=== PATIENT | female | born 1985 | race Two or more races ===

== ENCOUNTER 2020-09-09 15:20 | Emergency (ER) | payer MEDICAID, OTHER ==
[~2020-09-09] VITALS: Ht 170.2 cm; Wt 77.1 kg
[2020-09-09 15:24] VITALS: BP 139/62
--- NOTE | 2020-09-09 15:44 | NUR ---
C/O LEFT HAND DISCOMFORT, PT WAS PICKING UP TRASH TODAY AND BELIEVE SHE WAS POKED BY A NEEDLE. STATES "IT DOESNT HURT, JUST FEELS WEIRD". NO DEFORMITY NOTED, SKIN IS INTACT. CMS +. NO PMH NKDA
--- NOTE | 2020-09-09 15:52 | NUR ---
PROVIDER AT BEDSIDE EVALUATING PT.
[2020-09-09] MEDS ORDERED: RALT400T PO (16:06)
[2020-09-09] MEDS ORDERED: ONDA4TAB PO (16:06)
[2020-09-09] MEDS ORDERED: TENO300T2 PO (16:06)
--- NOTE | 2020-09-09 16:10 | NUR ---
PROVIDER EVALUATING PT AT BEDSIDE VIA PHONE CANDY COUNTER CLERK. PER INTREPRETER PT DENIES ANY PAIN.
--- NOTE | 2020-09-09 16:14 | NUR ---
PROVIDER EVALUATING PT AT BEDSIDE.
[2020-09-09 16:20] VITALS: BP 139/62
--- NOTE | 2020-09-09 16:20 | NUR ---
Patient discharged with v/s stable. Written and verbal after care instructions given and explained. Patient alert, oriented and verbalized understanding of instructions. Ambulatory with steady gait. All questions addressed prior to discharge. ID band removed. Patient advised to follow up with PMD. Rx of FELY MANCIA VIREAD, given. Patient educated on indication of medication including possible reaction and side effects. Opportunity to ask questions provided and answered.
== END 2020-09-09 16:20 | disposition home or self-care (01) ==
LOC: MED 15:20
DX: M79.602 Pain in left arm (principal); Z79.899 Other long term (current) drug therapy; W46.1XXA Contact with contaminated hypodermic needle, initial encounter; Y93.89 Activity, other specified; Y92.89 Other specified places as the place of occurrence of the external cause; Y99.8 Other external cause status
CPT/HCPCS: 99283

== ENCOUNTER 2020-11-03 17:55 | Emergency (ER) | payer OTHER ==
[~2020-11-03] VITALS: Ht 170.2 cm; Wt 80.7 kg
[~2020-11-03 17:55] MED LIST: ONDA4TAB PO; RALT400T PO; TENO300T2 PO
[2020-11-03 18:05] VITALS: BP 151/83
[2020-11-03] MEDS ORDERED: CIPR500T4 PO (18:42)
[2020-11-03] MEDS: KETOROLAC 60 MG/2 ML VIAL IM ONE (18:44)
[2020-11-03] MEDS ORDERED: ACET-8386 PO (18:58)
== END 2020-11-03 18:54 | disposition home or self-care (01) ==
LOC: MED 17:55
DX: N39.0 Urinary tract infection, site not specified (principal); R51.9 Headache, unspecified
CPT/HCPCS: 81002; 81025; 96372; 99283; J1885

== ENCOUNTER 2021-06-03 17:47 | Emergency (ER) | payer OTHER ==
[~2021-06-03] VITALS: Ht 170.2 cm; Wt 85.3 kg
[~2021-06-03 17:47] MED LIST changes: +ACET-8386 PO; +CIPR500T4 PO
[2021-06-03 17:58] VITALS: BP 118/78
[2021-06-03] MEDS: KETOROLAC 30 MG/ML VIAL IM ONE (18:28)
[2021-06-03] MEDS ORDERED: IBUP-2213 PO (19:49)
[2021-06-03] MEDS ORDERED: LID5T TP (19:49)
[2021-06-03] MEDS ORDERED: CYCL-711 PO (19:49)
== END 2021-06-03 20:09 | disposition home or self-care (01) ==
LOC: MED 17:47
DX: M54.6 Pain in thoracic spine (principal)
CPT/HCPCS: 72080; 81002; 81025; 96372; 99283; J1885

== ENCOUNTER 2021-08-31 15:45 | Emergency (ER) | payer OTHER ==
[~2021-08-31] VITALS: Ht 167.6 cm; Wt 84.4 kg
[~2021-08-31 15:45] MED LIST changes: +CYCL-711 PO; +IBUP-2213 PO; +LID5T TP
[2021-08-31 15:46] VITALS: BP 161/76
--- NOTE | 2021-08-31 16:26 | NUR ---
XRAY AT BEDSIDE
--- NOTE | 2021-08-31 16:29 | NUR ---
URINE AND BLOOD WALKED TO LAB AND HANDED TO [facility]
[2021-08-31 16:38] LABS: BASOPHILS % (AUTO) 0.4 % (0.0-2.0); EOSINOPHILS % (AUTO) 0.7 % (0.0-4.0); HEMATOCRIT 34.8 % (36-48); HEMOGLOBIN 11.3 g/dL (12.0-16.0); LYMPHOCYTES # (AUTO) 1.4 K/uL (2.5-16.5); LYMPHOCYTES % (AUTO) 21.2 % (20.5-51.1); MEAN CORPUSCULAR HEMOGLOBIN 24 pg (27-31); MEAN CORPUSCULAR HGB CONC 33 g/dL (33-37); MONOCYTES # (AUTO) 0.5 K/uL (0.8-1.0); MONOCYTES % (AUTO) 7.5 % (1.7-9.3); NEUTROPHILS # (AUTO) 4.5 K/uL (1.8-7.7); NEUTROPHILS % (AUTO) 70.2 % (42.2-75.2); PLATELET COUNT (AUTO) 239 K/uL (140-450); RED BLOOD CELL COUNT(AUTO) 4.63 MIL/uL (4.20-5.40); RED CELL DISTRIBUTION WIDTH 15.9 % (11.6-13.7); WHITE BLOOD COUNT (AUTO) 6.4 K/uL (4.8-10.8)
[2021-08-31] MEDS ORDERED: ONDANSETRON 4 MG/2 ML VIAL IVP ONE (16:50)
[2021-08-31] MEDS ORDERED: FAMOTIDINE 20 MG/2 ML VIAL IVP ONE (16:50)
[2021-08-31] MEDS ORDERED: ALUMINUM HYD/MAG/SIMETHICONE 30 ML, DICYCLOMINE HCL LIQUID 20 MG, LIDOCAINE VISCOUS 2% ... PO ONE ×3 (16:50)
[2021-08-31] MEDS ORDERED: NACL 0.9% 1,000 ML IV ONE ×2 (16:50→18:30)
[2021-08-31 16:59] LABS: ALBUMIN 3.8 g/dL (3.4-5.0); ANION GAP 11.1 (8-16); CARBON DIOXIDE 27.1 mmol/L (21-32); CREATININE 0.8 mg/dL (0.6-1.3); POTASSIUM 3.2 mmol/L (3.5-5.1); TOTAL BILIRUBIN 0.5 mg/dL (0.0-1.0)
[2021-08-31] MEDS ORDERED: ALUMINUM HYD/MAG/SIMETHICONE 30 ML UDC ONE (17:06)
[2021-08-31] MEDS ORDERED: DICYCLOMINE HCL LIQUID 10 MG/5 ML UDC ONE (17:07)
[2021-08-31 17:08] LABS: APPEARANCE,URINE CLEAR (CLEAR); BILIRUBIN,URINE NEGATIVE (NEGATIVE); BLOOD, URINE 3+ (NEGATIVE); COLOR,URINE YELLOW (YELLOW); LEUKOCYTE ESTERASE ,URINE NEGATIVE (NEGATIVE); NITRITE, URINE NEGATIVE (NEGATIVE); UGLUCOSE NEGATIVE (NEGATIVE)
[2021-08-31] MEDS ORDERED: POTASSIUM CHLORIDE 10 MEQ TABER PO ONE (17:50)
--- NOTE | 2021-08-31 18:01 | NUR ---
Patient appears to be resting comfortably in bed. Vital Signs within normal limits. Respirations even and unlabored.
[2021-08-31 18:07] LABS: RBC,URINE >100 /HPF (0-5); WBC,URINE NONE SEEN /HPF (0-5)
[2021-08-31] MEDS ORDERED: KETOROLAC 15 MG/ML VIAL IVP ONE (18:30)
[2021-08-31] MEDS ORDERED: PANTOPRAZOLE 40 MG INJ VIAL IVP ONE (18:30)
--- NOTE | 2021-08-31 19:02 | NUR ---
PT PROVIDED WITH SNACKS BEDSIDE
--- NOTE | 2021-08-31 19:19 | NUR ---
Pt report given to DAVID POOLE. Transfer of care at this time.
[2021-08-31] MEDS ORDERED: PANT40EC PO (20:31)
[2021-08-31] MEDS ORDERED: ONDA-188 PO (20:31)
[2021-08-31 21:50] VITALS: BP 104/68
--- NOTE | 2021-08-31 21:52 | NUR ---
Patient discharged with v/s stable. Written and verbal after care instructions given and explained. Patient alert, oriented and verbalized understanding of instructions. Ambulatory with steady gait. All questions addressed prior to discharge. ID band removed. Patient advised to follow up with PMD. Rx of ZOFRAN AND PROTONIX given. Patient educated on indication of medication including possible reaction and side effects. Opportunity to ask questions provided and answered.
== END 2021-08-31 21:48 | disposition home or self-care (01) ==
LOC: MED 15:45
DX: K29.70 Gastritis, unspecified, without bleeding (principal); R11.2 Nausea with vomiting, unspecified; D64.9 Anemia, unspecified; E87.6 Hypokalemia; Z90.49 Acquired absence of other specified parts of digestive tract; Z98.890 Other specified postprocedural states; Z79.899 Other long term (current) drug therapy
CPT/HCPCS: 36415; 71045; 80053; 81001; 81025; 83690; 85025; 96361; 96374; 96375; 99284; C9113; J1885; J2405; J3490; Q0092; J7030

== ENCOUNTER 2022-07-12 09:44 | Emergency (ER) | payer OTHER ==
[~2022-07-12] VITALS: Ht 170.2 cm; Wt 79.4 kg
[~2022-07-12 09:44] MED LIST changes: -ACET-8386 PO; +ACET-8905 PO; +ONDA-188 PO; +PANT40EC PO
[2022-07-12 09:55] VITALS: BP 118/71
--- NOTE | 2022-07-12 09:57 | NUR ---
PT AMBULATED TO LOBBY
--- NOTE | 2022-07-12 12:27 | NUR ---
PT WAS A/OX4, SPEAKS FULL SENTENCES, FOLLOWS COMMAND, DENIES HENRY AND DIZZINESS. NO SOB. STATED "SOMETHING STUCK IN THE THROAT X 2 WEEKS". [facility]
--- NOTE | 2022-07-12 12:39 | NUR ---
ED MD BEDSIDE TO ASSESS PT.
[2022-07-12] MEDS ORDERED: PRED20TA5 PO (13:20)
[2022-07-12] MEDS ORDERED: FAMO-92 PO (13:20)
--- NOTE | 2022-07-12 13:47 | NUR ---
Patient discharged with v/s stable. Written and verbal after care instructions given and explained. Patient alert, oriented and verbalized understanding of instructions. Ambulatory with steady gait. All questions addressed prior to discharge. ID band removed. Patient advised to follow up with PMD. Rx of FAMITIDINE AND PREDNISONE given. Patient educated on indication of medication including possible reaction and side effects. Opportunity to ask questions provided and answered.
[2022-07-12 13:48] VITALS: BP 127/77
== END 2022-07-12 13:47 | disposition home or self-care (01) ==
LOC: MED 09:44
DX: J02.9 Acute pharyngitis, unspecified (principal); K29.70 Gastritis, unspecified, without bleeding; E78.00 Pure hypercholesterolemia, unspecified
CPT/HCPCS: 70360; 99283